=== PATIENT | male | born 1950 | race Caucasian/White ===

== ENCOUNTER 2021-05-01 14:23 | Outpatient (CLI) | payer OTHER | END 2021-05-01 14:24 | disposition short-term general hospital (02) | LOC: EMS 14:23 | DX: Z04.3 Encounter for examination and observation following other accident (principal); M25.552 Pain in left hip | CPT/HCPCS: A0425; A0427 ==

== ENCOUNTER 2021-11-12 14:58 | Outpatient (CLI) | payer OTHER ==
[2021-11-12 16:01] VITALS: BP 115/77
--- NOTE | 2021-11-12 16:01 | SLEEP CARE CONSULTATION ---
Information from patient questionnaire entered by Sharla Hodegs MA. I have reviewed and concur with the information entered by Sharla Hodges MA. This document represents the service I personally performed and the decisions made by , Felicity Shrestha ARNP. History of Present Illness Service Date and Time: 11/12/2021 1458 Reason for Visit: New patient (ONSET 05/2020, [facility], ), Previously diagnosed sleep apnea Chief Complaint: reports: Snoring, Observed pauses in breathing Date of Onset: YEARS Usual bedtime: 10 PM Time it takes to fall asleep: 15-30 MINUTES Snores at night: Yes Observed to quit breathing while asleep: Yes Number of times waking at night: 2-3 Reasons for waking at night: reports: Bathroom. denies: Choking, Snoring, Gasping for air Toss, Turn, or Twitch while sleeping: Yes Recalls having dreams: No Usually gets out of bed at: [id number] Feels refreshed in the morning: No Morning headache: No Sleepy or fatigued during the day: Yes Ever fallen asleep while driving: No Takes day naps: Yes (unintentional naps when sitting in recliner, daily) Dreams during day naps: No Prior sleep studies: Yes Year and Where: 10/14/2020 [id number] ([place]) Type of Sleep Study: Home sleep study Additional HPI information: I had the pleasure of seeing KISHORE PINEDO today regarding the possibility of him having a sleep disorder. 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 His current complaints are snoring and observed pauses in breathing. He states he has not been able to get started with any therapy due to Covid and other delays. He is here for another sleep study since the other is over a year old. - Parasomnia Symptoms Ever been unable to move upon waking from sleep: No Walks in sleep: No Talks in sleep: No Ever acted out dreams in sleep: No Ever felt weak in the knees when startled or emotional: No Bothered by creepy, crawly, restless sensations in legs: No Problems with memory or concentration: Yes (both, memory worse) Subjective Initial [place] Sleepiness Scale score: 4 (11/12/2021) Past Medical History Past Medical History: reports: Congestive Heart Failure, Diabetes, Stroke, Arthritis, Coronary Heart Disease, Other (Pacemaker for bradycardia, 2017) Social History The patient's occupation is a [employer]. Patient is and lives in [place] [place]. Have you smoked in the past 12 months: No Cigarettes per day (20/pack): 20 Years of smokin Smoking Pack Years: 2.0 Alcohol use: Yes Alcohol amount and frequency: 1 beer a week Caffeine use: No Family History Family history of sleep disordered breathing: No Family Hx Sleep Apnea: Father: Snoring Allergies and Home Medications Drug allergies reviewed: Yes (NKDA) Home medication list reviewed: Yes Allergy and home medication list: Medications: Metformin 500 mg twice a day Tamsulosin 0.4 mg Isosorbide mononitrate 30 mg Lisinopril 40 mg Pantoprazole 40mg twice a day Gabapentin 300 mg, 2 pills, 3 x a day Citalopram Hydrobromide 40 mg Metoprolol succinate 50 mg Clopidogrel bisulfate 75 mg Amlodipine besylate 5 mg Multivitamin Cholecalcif Vit D 25 mcg Ferrous Gluconate every other day Atorvastatin calcium 80 mg Aspirin 81 mg ibuprofen, prn Review of Systems Cardiovascular: reports: high blood pressure Musculoskeletal: reports: joint pain (recent fracture of left femur), mobility problems Physical Exam Vital signs obtained and entered by: JOAO BOUDREAUX Blood Pressure: 115/77 (RESP 18, PULSE 68, RIGHT) Cuff size: wrist Heart Rate: 66 O2 Saturation: 98 (PAPER MASK) Height: 5 ft 9 in Weight: 267 lb 8 oz (CLOTH) Body Mass Index: 39.4 BMI Classification: Obese Neck circumference: 17.5 (INCHES) Heart: regular rate and rhythm Lungs: clear bilaterally Impression and Plan 1. Suspected Obstructive Sleep Apnea-Hypopnea Syndrome, as previously diagnosed and as still suggested by a history of loud and irregular snoring, observed cessation of breath while asleep and unrefreshed sleep. Narrow oropharynx and obesity are common predisposing factors for obstructive sleep apnea-hypopnea syndrome. I recommend proceeding to polysomnography to confirm the diagnosis and to assess severity. If the patient has significant sleep disordered breathing, a manual CPAP titration study will also be performed to find the optimal treatment pressure. I informed the patient of what the sleep studies involve and after some discussion, obtained agreement to proceed. The pathophysiology of obstructive sleep apnea-hypopnea syndrome was discussed with the patient and health risks of cardiovascular and cerebrovascular disease if not treated. 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 Patient agreed to plan. * Schedule polysomnography * Avoid long distance driving or driving when feeling sleepy. * Avoid alcohol, sedative and muscle relaxant around bedtime. * Attempt to lose weight. * Review instructions provided by trained office staff on how to prepare for the sleep study. * Return for follow-up after sleep study completed. Counseling Topics: Weight loss health impact Visit Type: In Office Time Spent with Patient (minutes): 30 Provider Statement: I spent 100% of the Face to Face Visit with the patient with greater than 50% spent counseling the patient and coordination of care.
== END 2021-11-12 14:59 | disposition home or self-care (01) ==
LOC: SC 14:58
PROVIDERS: ATTEND Nurse Practitioner Family
DX: G47.33 Obstructive sleep apnea (adult) (pediatric) (principal); E66.9 Obesity, unspecified; Z68.39 Body mass index [BMI] 39.0-39.9, adult; Z87.891 Personal history of nicotine dependence
CPT/HCPCS: 99203; 99212

== ENCOUNTER 2021-11-16 20:37 | Outpatient (CLI) | payer OTHER | END 2021-11-16 20:38 | disposition home or self-care (01) | LOC: SC 20:37 | PROVIDERS: ATTEND Nurse Practitioner Family | DX: G47.33 Obstructive sleep apnea (adult) (pediatric) (principal) | CPT/HCPCS: 95810 ==

== ENCOUNTER 2021-11-25 16:36 | Outpatient (CLI) | payer OTHER ==
[2021-11-25 16:34] VITALS: BP 129/82
--- NOTE | 2021-11-25 16:34 | SLEEP CARE CONSULTATION ---
Information from patient questionnaire entered by Sharla Hodges MA. I have reviewed and concur with the information entered by Sharla Hodges MA. This document represents the service I personally performed and the decisions made by , Felicity Shrestha ARNP. History of Present Illness Service Date and Time: 11/25/2021 1600 Initial [place] Sleepiness Scale score: 4 (11/12/2021) Current [place] Sleepiness Scale score: 2 (11/25/2021) Additional HPI information: KISHORE PINEDO returns for follow up and results of the recently performed polysomnography. I explained the pathophysiology behind obstructive sleep apnea. We then spent quite a bit of time discussing different treatment options. For mild obstructive sleep apnea, surgery and oral appliance are alternatives to nasal CPAP therapy but in moderate or severe cases, nasal CPAP is the most effective and reliable treatment. Because apnea is primarily in supine position, then positional management therapy could be effective. Methods discussed such as positioning with pillows to prevent supine sleep. I reviewed the impact of weight changes on sleep apnea and strongly recommended losing weight. After some discussion, the patient opted to go with the nasal CPAP therapy. Nasal autoCPAP set at 5-20 cmH20 will be ordered with rationale explained. A manual titration study will be ordered if unable to find optimal pressure with office adjustments. I explained how CPAP machine works and what to expect when using the machine. Using CPAP every night in order to get used to it was emphasized. Patient advised to put CPAP mask on before getting into bed so as not to fall asleep without CPAP. To assist acclimation to CPAP use, it could also be used for a short time during day while reading or watching TV. The patient was instructed to call the CPAP supplier to discuss any mechanical problem that may occur. If the mask given is uncomfortable or is difficult to keep on through the night even with adjustment, contact the CPAP supplier as many will replace with anot her mask style if notified before 30 days. If snoring or perceives is not getting enough air or too much air from the machine, notify this office. Patient does not drink alcohol. Patient was cautioned about risks of drowsy driving until sleepiness symptoms resolve. Patient denies drowsy driving. Sleep Study - Results Type of Sleep Study: Polysomnography (F/U POLY, 11/16/2021, [facility], POS - [facility]) Prior sleep studies: Yes Year and Where: 10/14/2020 [facility] ([place]) Polysomnography/Home Sleep Study results: IMPRESSION: The quality of the study is good. The patient had normal sleep efficiency. The sleep architecture was abnormal for sleep fragmentation and lack of slow wave sleep (N3). Respiratory monitoring showed very severe obstructive sleep apnea-hypopnea (AHI = 64.7) associated with frequent arousals, oxyhemoglobin desaturation and severe hypoxia (virgilio oxygen saturation of 60%). Baseline oxygen saturation was low normal. The respiratory events occurred independently of sleep stage and body position (supine AHI = 69.9; non-supine = 63.11). Snore was loud in intensity. There was no significant periodic leg movement of sleep. Cardiac rhythm was normal sinus rhythm without significant arrhythmia. No abnormal behavior (parasomnia) observed during the night. Allergies and Home Medications Home medication list reviewed: Yes (no changes) Review of Systems Review of systems same as previous: Yes (no changes) Physical Exam Vital signs obtained and entered by: JOAO BOUDREAUX Blood Pressure: 129/82 (RESP 18, PULSE 76, LEFT) Heart Rate: 80 O2 Saturation: 98 (NO MASK) Height: 5 ft 9 in Weight: 266 lb 8 oz Body Mass Index: 39.3 BMI Classification: Obese Impression and Plan 1. Obstructive Sleep Apnea-Hypopnea Syndrome, very severe, with lowest oxygen saturation of 60%. Obviously this is the cause of the patients symptoms of unrefreshed sleep, and excessive daytime sleepiness. Positive pressure therapy could benefit cardiac disease (congestive heart failure and coronary heart disease), diabetes and cerebrovascular disease (stroke). As mentioned above, the patient will be started on nasal autoCPAP therapy with pressure set at 5-20 cmH2 O. Compliance guidelines also reviewed. A copy of compliance guidelines will be given for reference at check out. 2. Hypoxemia, severe, virgilio oxygen saturation of 60% with 152.3 minutes spent under 89%. His baseline oxygen saturation was low normal with an oxygen saturation of 88%. * Nasal auto CPAP therapy, pressure at 5-20 cm H2O, urgent setup due to severe hypoxemia. * Attempt to lose weight. * The patient is again cautioned about driving * Return one month after CPAP obtained. I will assess response to therapy and compliance at that time. Counseling Topics: Weight loss health impact Visit Type: In Office Time Spent with Patient (minutes): 23 Provider Statement: I spent 100% of the Face to Face Visit with the patient with greater than 50% spent counseling the patient and coordination of care.
== END 2021-11-25 16:37 | disposition home or self-care (01) ==
LOC: SC 16:36
PROVIDERS: ATTEND Nurse Practitioner Family
DX: G47.33 Obstructive sleep apnea (adult) (pediatric) (principal); R09.02 Hypoxemia; E66.9 Obesity, unspecified; Z68.39 Body mass index [BMI] 39.0-39.9, adult
CPT/HCPCS: 99212; 99213